=== PATIENT | female | born 2000 | race Two or more races ===

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

== ENCOUNTER 2022-01-10 05:30 | Emergency (ER) | payer MEDICAID ==
[~2022-01-10] VITALS: Ht 162.6 cm; Wt 49.9 kg
[2022-01-10 07:30] VITALS: BP 115/86
[2022-01-10] MEDS ORDERED: IBUP600T27 PO (07:31)
== END 2022-01-10 07:57 | disposition home or self-care (01) ==
LOC: ER 05:30
DX: S83.91XA Sprain of unspecified site of right knee, initial encounter (principal); W20.8XXA Other cause of strike by thrown, projected or falling object, initial encounter; Y93.66 Activity, soccer; Y92.89 Other specified places as the place of occurrence of the external cause; Y99.8 Other external cause status
CPT/HCPCS: 73562